=== PATIENT | female | born 1955 | race Caucasian/White ===

== ENCOUNTER 2024-06-26 10:37 | Emergency (ER) | payer MEDICARE, SELFPAY ==
[2024-06-26 10:40] VITALS: BP 198/123
[2024-06-26 10:44] VITALS: BP 190/121
[2024-06-26 11:05] VITALS: BP 176/99
[2024-06-26] MEDS: VERSED 1 MG IV (11:25)
[2024-06-26] MEDS: TORADOL 15 MG IV (11:26)
[2024-06-26] MEDS: LIDOCAINE 4% PATCH 1 PATCH TOPICAL (11:27)
[2024-06-26 11:30] VITALS: BMI 28.3
[2024-06-26 11:42] LABS: Hematocrit 39.5 % (37.0-47.0); Hemoglobin 13.6 g/dL (12.0-16.0); Mean Corp Hgb Conc. 34.4 g/dL (33.0-37.0); Mean Corpuscular Hgb 32.3 pg (27.0-31.0); Mean Corpuscular Volume 93.8 fL (81.0-99.0); Mean Platelet Volume 8.7 fL (7.4-10.4); Platelet Count 263 10^3/uL (130-400); Red Blood Cell Count 4.21 10^6/uL (4.20-5.40); Red Cell Dist. Width 12.8 % (11.5-14.5); White Blood Cell Count 9.6 10^3/uL (4.8-10.8)
--- NOTE | 2024-06-26 11:54 | ED.GENMED ---
History of Present Illness
General
Chief Complaint: Back Pain
Time Seen by Provider: 06/26/24 11:04
History of Present Illness
History of Present Illness:
69-year-old female with history of hypertension presenting to the emergency department for left-sided back pain. Patient reports that yesterday she was watching her grandchildren, 2-1/2 and 2 months. She was holding both of them. At the time, did
not have any pain, however into the evening, pain in her left scapular region. Pain has since worsened, radiating down her left upper extremity, now with paresthesias to the third fourth and fifth digits. Denies direct trauma to the back. Denies
pain into her chest. Denies difficulty breathing. She did not take any medications for pain prior to arrival. Denies known history of cardiac disease. Denies fever or cough. Denies abdominal pain or GI symptoms. Denies additional acute medical
complaints
Past History
Past History
ED Past Medical History: HTN and Hypercholesterolemia
ED Past Surgical History: Appendectomy and Gynecological
Social History
Tobacco: Non-smoker
Alcohol: Daily
Drug: None
Personal:
Living: with family
Employment: Employed
Phy Exam
Physical Exam
Physical Exam:
General: Well-appearing, no clinical signs of dehydration, nontoxic and in no acute distress
HEENT: protecting airway
Neck: appears supple
CV: Normal heart rate, regular rhythm
Resp: No accessory muscle use, no increased work of breathing, lungs clear to auscultation bilaterally
Abd: Soft and non-distended, no tenderness to palpation, normal bowel sounds
Extremities: No deformities, no swelling, no erythema, pulses and sensation intact. Mild tenderness to the left paraspinal musculature of the thoracic back along the scapular border. No overlying skin changes
Neuro: alert, no focal neurologic deficit
: deferred
Rectal: deferred
Psych: Normal affect
Skin: Intact
Course
Orders/Labs/Results
Orders:
Orders
06/26/24 10:44
ECG [Electrocardiogram (*1)] Urgent
Reason for Study: Chest Pain
EKG- Treatment ONCE
06/26/24 11:12
Ketorolac [Toradol] 15 mg IV NOW STA
Midazolam HCl [Versed] 1 mg IV NOW STA
06/26/24 11:13
CR Chest - 2 Views Urgent
Comment:
Reason For Exam: chest pain
06/26/24 11:14
Lidocaine [Lidocaine 4% Patch] 1 patch TOPICAL ONCE ONE
Apply Lidocaine patch(s) to:: L-thoracic
06/26/24 11:20
Complete Blood Count/No Diff Urgent
Comprehensive Metabolic Panel Urgent
Troponin I Urgent
06/26/24 13:33
diazePAM [Valium Injection] 1 mg IV NOW STA
06/26/24 13:55
diazePAM [Valium Injection] 2 mg IV NOW STA
Abnormal Lab Results
06/26/24
11:20
MCH 32.3 H pg
(27.0-31.0)
BUN 22 H mg/dl
(7-17)
Glucose 149 H mg/dl
(70-99)
ALT 38 H U/L
(0-35)
06/26/24 11:20
06/26/24 11:20
Vital Signs
Initial and Last Documented VS:
Initial Vital Signs
Pulse Resp BP Pulse Ox
94 18 198/123 100
06/26/24 10:40 06/26/24 10:40 06/26/24 10:40 06/26/24 10:40
Last Documented Vital Signs
Pulse Resp BP Pulse Ox
88 15 140/75 98
06/26/24 13:30 06/26/24 13:30 06/26/24 13:00 06/26/24 13:30
MDM/Problems Addressed
MDM/Problems Addressed:
69-year-old female with history of hypertension presenting for left-sided back pain with radiation down the left upper extremity. Vital signs on arrival significant for hypertension.
On exam patient is in no acute distress, however does appear uncomfortable secondary to pain. Patient's symptoms appear consistent with a muscle spasm and ultimate radiculopathy. Patient is reporting cufh-yey-[id number] third fourth and fifth digit,
likely ulnar distribution. Patient without any cervical neck pain or history of direct injury without concern for cervical abnormality. Sensation and pulses are intact to the lower upper extremity without concern for central neurologic process.
EKG obtained on arrival, nonischemic. Patient without chest pain, with lower suspicion for ACS equivalent. Will screen with EKG and laboratory analysis. Will treat with benzodiazepines and Toradol and reassess for improvement
14:00 -patient's labs are unremarkable. Chest x-ray without acute cardiopulmonary disease. Patient reports symptom improvement after benzodiazepine. At this time feel that she is stable for discharge, however advising interval follow-up with
orthopedics. Will start on a steroid pack. Will also prescribe Valium. Return precautions discussed and patient verbalized understanding
*EKG
Interpreted by ED Provider?: Yes
EKG Intrepretation Date: 06/26/24
EKG Intrepretation Time: 12:17
Interpretation: normal
Comparison EKG: no changes (10/23/17)
Heart Rate: 97
Rate: normal
Rhythm: sinus
[place]: normal axis
Interval: normal interval
QRS Pattern: normal QRS
Ischemia: no ischemia
*Critical Care Note
Total Time (30-74mins, 75-104mins- exclusive of procedures): Not Applicable
ED Attending Note
-
Portions of this chart may have been created with voice recognition software.� Occasional wrong word or��sound alike� substitutions may have occurred due to the inherent limitations of voice recognition software.
Discharge Plan
Departure
Prescriptions:
No Action
multivitamin 1 EACH tablet
1 ea PO DAILY
nebivolol [Bystolic] 5 MG tablet
10 mg PO DAILY
Referrals:
Cherie Harmon MD [Family Provider] -
Interventions
Interventions:
*Risk Screen - Suicide Last Done: 06/26/24 11:30
*General Assessment Last Done: 06/26/24 11:30
*Neglect/Abuse Screening Last Done: 06/26/24 11:30
ED- Fall Risk Assessment Last Done: 06/26/24 11:30
*ED COVID-19 Vaccine History Last Done: 06/26/24 11:30
ED-Musculoskeletal Assessment Last Done: 06/26/24 11:31
Discharge Date and Time
Print Language: AMHARIC
[2024-06-26 12:00] VITALS: BP 154/77
[2024-06-26 12:00] LABS: ALT (SGPT) 38 U/L (0-35); AST (SGOT) 34 U/L (14-36); Albumin 4.6 g/dl (3.5-5.0); Alkaline Phosphatase 63 U/L (38-126); Blood Urea Nitrogen 22 mg/dl (7-17); Calcium 10.2 mg/dl (8.4-10.2); Carbon Dioxide 25 mmol/L (22-30); Chloride 104 mmol/L (98-107); Estimated Creatinine Clearance 61 ml/min; Glucose 149 mg/dl (70-99); Potassium 4.8 mmol/L (3.5-5.1); Sodium 142 mmol/L (135-145); Total Bilirubin 0.5 mg/dl (0.2-1.3); Total Protein 7.7 g/dl (6.3-8.2); eGFR > 60.00
[2024-06-26 12:04] LABS: Troponin I < 0.012 ng/ml
[2024-06-26 13:00] VITALS: BP 140/75
[2024-06-26] MEDS: VALIUM INJECTION 2 MG IV (13:57)
[2024-06-26 14:00] VITALS: BP 153/81
== END 2024-06-26 14:14 | disposition home or self-care (01) ==
LOC: EMR 10:37
PROVIDERS: EMERGENCY PHYSICIAN Student in an Organized Health Care Education/Training Program; FAMILY PHYSICIAN Family Medicine
DX: M54.10 Radiculopathy, site unspecified (principal); M62.830 Muscle spasm of back; I10 Essential (primary) hypertension; M54.9 Dorsalgia, unspecified
CPT/HCPCS: 99285; 96374; 96375 ×2; 71046; 80053; 84484; 85027; 93005

== ENCOUNTER → 2024-06-27 16:12 | Outpatient (REF) | payer MEDICARE, SELFPAY | LOC: RAD 16:12 | PROVIDERS: ATTENDING PHYSICIAN Family Medicine; FAMILY PHYSICIAN Family Medicine | DX: M54.2 Cervicalgia (principal); R20.2 Paresthesia of skin | CPT/HCPCS: 72040 ==

== ENCOUNTER → 2024-08-16 09:12 | Outpatient (REF) | payer MEDICARE, SELFPAY | LOC: MRI 3T 09:12 | PROVIDERS: ATTENDING PHYSICIAN Physician Assistant; FAMILY PHYSICIAN Family Medicine | DX: M54.12 Radiculopathy, cervical region (principal) | CPT/HCPCS: 72141 ==

== ENCOUNTER → 2025-02-03 08:20 | Outpatient (REF) | payer MEDICARE, SELFPAY | LOC: WDC 08:20 | PROVIDERS: ATTENDING PHYSICIAN Family Medicine | DX: Z12.31 Encounter for screening mammogram for malignant neoplasm of breast (principal) | CPT/HCPCS: 77063; 77067 ==

== ENCOUNTER → 2025-02-13 12:07 | Outpatient (REF) | payer MEDICARE, SELFPAY | LOC: RAD 12:07 | PROVIDERS: ATTENDING PHYSICIAN Family Medicine | DX: E78.00 Pure hypercholesterolemia, unspecified (principal) | CPT/HCPCS: 75571 ==